=== PATIENT | male | born 1975 | race Caucasian/White ===

== ENCOUNTER 2016-12-30 21:41 | Emergency (ER) | payer BC ==
[~2016-12-30] VITALS: Ht 177.8 cm; Wt 134.7 kg
[2016-12-30 22:24] LABS: ADD MIUA? YES; BILIRUBIN NEGATIVE; BLOOD MODERATE; COLOR YELLOW ((YELLOW)); GLUCOSE (STRIP) NEGATIVE; KETONES NEGATIVE; LEUKOCYTES NEGATIVE; NITRITE NEGATIVE; PROTEIN (STRIP) NEGATIVE; SPECIFIC GRAVITY 1.023 (1.000-1.030); UROBILINOGEN 0.2 MG/DL (0.2-1.0)
[2016-12-30 22:31] LABS: BACTERIA NONE SEEN /HPF; EPITHELIAL CELLS RARE /HPF; MUCUS TRACE /LPF; RED BLOOD CELLS 30-40 /HPF (0-5); WHITE BLOOD CELLS 0-5 /HPF (0-5)
[2016-12-30 23:18] LABS: HEMATOCRIT 45.3 % (38.0-50.0); MCH 28.1 PG (29.0-34.0); MCHC 32.5 G/DL (30.0-36.0); MCV 86.6 FL (86-99); MEAN PLAT.VOLUME 9.7 uM^3 (9.0-12.4); PLATELET COUNT 258 K/uL (156-360); RBC DIS.WIDTH-CV 13.5 % (11.8-14.6); RBC DIS.WIDTH-SD 42.9 % (39-53); RED BLOOD COUNT 5.23 M/uL (4.00-5.50); WHITE BLOOD COUNT 9.1 K/uL (4.1-10.2)
[2016-12-30 23:33] LABS: CHLORIDE 108 mEq/L (99-109); POTASSIUM 3.9 mEq/L (3.7-5.4); SODIUM 138 mEq/L (136-147)
[2016-12-30 23:35] LABS: GLUCOSE 112 mg/dL (70-99)
[2016-12-30 23:36] LABS: ANION GAP 9 MEQ/L (2-14)
[2016-12-30 23:39] LABS: GFR ESTIMATE (CALCULATED) > 59 mL/min/
[2016-12-30 23:40] LABS: UREA NITROGEN (BUN) 19 mg/dL (9-23)
[2016-12-30] MEDS ORDERED: ULTRAM50 MG PO (23:45)
[2016-12-30] MEDS ORDERED: ZOFRAN ODT4 MG PO (23:45)
[2016-12-30 23:54] VITALS: BP 127/75
== END 2016-12-30 23:55 | disposition home or self-care (01) ==
LOC: EME 21:41
PROVIDERS: Physician Assistant
DX: N20.0 Calculus of kidney (principal); Z87.442 Personal history of urinary calculi; Z87.891 Personal history of nicotine dependence; Z90.49 Acquired absence of other specified parts of digestive tract
CPT/HCPCS: 74176; 80048; 81003; 85027; 99281; 99284; J1885

== ENCOUNTER 2017-06-29 10:48 | Emergency (ER) | payer BC ==
[~2017-06-29] VITALS: Ht 177.8 cm; Wt 137.2 kg
[~2017-06-29 10:48] MED LIST: ULTRAM50 MG PO; ZOFRAN ODT4 MG PO
[2017-06-29 11:35] LABS: HEMATOCRIT 46.2 % (38.0-50.0); MCH 29.4 PG (29.0-34.0); MCHC 33.5 G/DL (30.0-36.0); MCV 87.5 FL (86-99); MEAN PLAT.VOLUME 9.8 uM^3 (9.0-12.4); PLATELET COUNT 277 K/uL (156-360); RBC DIS.WIDTH-CV 13.4 % (11.8-14.6); RBC DIS.WIDTH-SD 42.8 % (39-53); RED BLOOD COUNT 5.28 M/uL (4.00-5.50); WHITE BLOOD COUNT 9.8 K/uL (4.1-10.2)
[2017-06-29 11:40] LABS: D-DIMER ELISA < 150.00 ng/mLDDU (<230)
[2017-06-29 11:41] LABS: CHLORIDE 107 mEq/L (99-109); POTASSIUM 3.5 mEq/L (3.7-5.4); SODIUM 139 mEq/L (136-147)
[2017-06-29 11:43] LABS: GLUCOSE 101 mg/dL (70-99)
[2017-06-29 11:44] LABS: ANION GAP 10 MEQ/L (2-14)
[2017-06-29 11:47] LABS: GFR ESTIMATE (CALCULATED) > 59 mL/min/
[2017-06-29 11:48] LABS: UREA NITROGEN (BUN) 10 mg/dL (9-23)
[2017-06-29 11:53] LABS: TROP-I INTERPRETATION NEGATIVE; TROPONIN-I < 0.01 ng/mL (0.0-0.30)
[2017-06-29] MEDS ORDERED: PREDNISONE20 MG PO (15:03)
[2017-06-29 15:23] VITALS: BP 99/53
== END 2017-06-29 15:23 | disposition home or self-care (01) ==
LOC: EME 10:48
PROVIDERS: Emergency Medicine
DX: R07.9 Chest pain, unspecified (principal); Z86.711 Personal history of pulmonary embolism; Z87.891 Personal history of nicotine dependence
CPT/HCPCS: 71020; 71275; 80048; 84484; 85027; 85379; 93005